=== PATIENT | female | born 1960 | race Caucasian/White ===

== ENCOUNTER 2023-11-09 15:02 | Outpatient (CLI) | payer MEDICARE | END 2023-11-09 15:03 | disposition home or self-care (01) | LOC: DI 15:02 | PROVIDERS: ATTEND Internal Medicine Cardiovascular Disease | DX: R94.31 Abnormal electrocardiogram [ECG] [EKG] (principal); I51.7 Cardiomegaly; R00.1 Bradycardia, unspecified | CPT/HCPCS: 93307 ==

== ENCOUNTER 2024-03-21 12:51 | Emergency (ER) | payer MEDICARE ==
--- NOTE | 2024-03-21 13:16 | ED Physician Documentation ---
PD HPI Fall - Stated complaint Stated Complaint: GLF/RT ARM INJ - Chief complaint Chief Complaint: Laceration - History obtained from History obtained from: Patient - History of Present Illness Mechanism of injury: Lost balance (riding horse and it turned quickly toward fencing/gate. Pt thrown off to the side and struck into fencing. Sharp edge/? nail caught forearm skin with large tear. Injury to right chest/ribs area. Noinjury to head/neck/spine nor abd. Amblatory after without pain in hips/legs to liit walking.) Fall distance: 5 to 10ft (from mounted on a horse.) Where injury occurred: Home Timing - onset: How many hours ago (1), Today Injury(ies) location: Chest, Right Upper Extremity. No: Head, Neck, Abdomen, Back Pain level max: 8 Pain level now: 4 Associated symptoms: No: LOC, AMS, Weakness, Paresthesias Review of Systems Neurologic: denies: Focal weakness, Numbness, Altered mental status, Headache, Head injury PD PAST MEDICAL HISTORY - Past Medical History Cardiovascular: None Respiratory: None Neuro: None Endocrine/Autoimmune: None GI: Colon polyps : None HEENT: None Psych: None Musculoskeletal: None Derm: None - Past Surgical History General: Colonoscopy /[employer]: Endometrial ablation - Present Medications Home Medications: Ambulatory Orders Medication Instructions Recorded Confirmed HYDROcod/ACETAM 5/325 [[facility] 5/325] 1 ea PO Q6H PRN #18 tablet 03/21/24 Meloxicam [Mobic] 7.5 mg PO BID 10 Days #20 tablet 03/21/24 - Allergies Allergies/Adverse Reactions: Allergies Allergy/AdvReac Type Severity Reaction Status Date / Time Sulfa (Sulfonamide Allergy Rash Verified 03/21/24 13:13 Antibiotics) - Social History Smoking Status: Never smoker PD ED PE NORMAL - Vitals Vital signs reviewed: Yes - General General: Alert and oriented X 3, Well developed/nourished, Other (in pain with breathing due to right chestwall. Guarding ROM of right forearm due to large laceration. 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 ) - HEENT HEENT: Atraumatic - Neck Neck: Supple, no meningeal sign, No bony TTP - Cardiac Cardiac: RRR, No murmur - Respiratory Respiratory: No respiratory distress, Clear bilaterally, Other (tender right lateral to posterior chest wall without lac nor crepitance. Linear bruising vertically faintly noted. ) - Abdomen Abdomen: Normal bowel sounds, Soft, Other (tender lateral right abd/trunk and toward right flank. Some tender right iliac crest and lateral iliac spine. Pasive ROM with pain, and no pain with impaction at hip. ) - Back Back: No CVA TTP, No spinal TTP (soft tissue tender posterolateral back with redness/early bruising vertically c/w the edge of board on fence. ) - Derm Derm: Normal color, Warm and dry - Extremities Extremities: Other (large laceration 15.5 cm zig-zag shape dorsolateral forearm. Full thickness skin/adipose, exposing but not involving uscle sheath of brachioradialis. No FB. Minimal bleeding.) - Neuro Neuro: Alert and oriented X 3, No motor deficit, No sensory deficit Eye Opening: Spontaneous Motor: Obeys Commands Verbal: Oriented GCS Score: 15 Results - Vitals Vitals: Oxygen O2 Source Room air - Labs Labs: Laboratory Tests 03/21/24 03/21/24 13:36 13:36 WBC 7.1 RBC 4.26 Hgb 13.4 Hct 41.1 MCV 96.5 MCH 31.5 H MCHC 32.6 RDW 13.8 Plt Count 211 MPV 9.5 Neut # (Auto) 5.0 Lymph # (Auto) 1.3 L Andrews # (Auto) 0.6 Eos # (Auto) 0.1 Baso # (Auto) 0.0 Absolute Nucleated RBC 0.00 Nucleated RBC % 0.0 Sodium 138 Potassium 4.3 Chloride 104 Carbon Dioxide 30 Anion Gap 4.0 L BUN 15 Creatinine 0.8 Estimated GFR (MDRD) 72 L Glucose 111 H Calcium 9.7 Total Bilirubin 1.1 H AST 80 H ALT 53 Alkaline Phosphatase 53 Total Protein 6.6 Albumin 4.6 Globulin 2.0 L Albumin/Globulin Ratio 2.3 H Lipase 36 - Rads (name of study) right forearm Relevant Findings:: Prelim report reviewed, EMP independent interpretation of test (no fractures. Soft tissue defect noted. ) chest xray Relevant Findings:: Prelim report reviewed, EMP independent interpretation of test (normal lung markings and no noted fractures. ) hip xray Relevant Findings:: Prelim report reviewed, EMP independent interpretation of test (no fractures) chest/abd/pelvic CT Relevant Findings:: Prelim report reviewed (no rib fractures, no organ inury ), EMP independent interpretation of test Procedures - Laceration (location) right forearm Length in cm: 15.5 Wound type: Curved, Irregular, Into subcut fat, Clean Neurovascular status: Sensory intact, Motor intact, Vascular intact Tendon involvement: Tendon intact Anesthesia: Lidocaine 1% with epi Wound preparation: debridement of wound edges (traumatic laceration/avulsion) Deep layer closure: Vicryl, size #-0 - enter number (5), # sutures - enter number (10) Skin layer closure: Nylon, Running, Size #-0 - enter number (4), Sutures - enter # (29) Other: Patient tolerated well, No complications, Neurovascular intact, Dressing applied, Tetanus UTD PD Medical Decision Making - ED course Complexity details: reviewed results (no fractures or organ injuries on imaging. Large forearm lac repaired. She was given some IV pain meds and Toradol to help with symptoms after initial eval. This helped her quite well, per pt. ), considered differential (forceful injury falling from trotting horse into fencing, with point impact to side of trunk. Some bruising/redness in a line that area. ), d/w patient Departure - Departure Disposition: 01 Home, Self Care Clinical Impression: Fall from horse, Forearm laceration, Chest wall contusion, Forearm contusion Condition: Stable Record reviewed to determine appropriate education?: Yes Instructions: ED Contusion Chest Wall, ED Laceration All Prescriptions: Meloxicam [Mobic] 7.5 mg PO BID 10 Days #20 tablet HYDROcod/ACETAM 5/325 [[facility] 5/325] 1 ea PO Q6H PRN #18 tablet PRN Reason: Pain Comments: Your CT scan does not show any rib fractures or organ injury. X-rays of your arm and hip also do not show any broken bones. Brody you. You will be sore however from the bruising and injury to the areas. This is likely to be for at least several days to week or so. Some anti-inflammatories will be helpful and adding in Tylenol every 4-6 hours. You will likely be more sore than that in the short-term so I also prescribed hydrocodone pain medicine to use if needed. It is okay to wash and shower. Clean off the wound twice a day with soap and mino er, or peroxide and water. Apply some antibiotic ointment to it to keep it moist. Also to watch for signs of infection such as purulence, redness or increasing pain. Return to your primary care or the ER at the specified time for suture removal. Suture removal 12 to 14 days on the forearm. Activity as tolerated with the forearm. I already transmitted prescriptions to [facility] in [place]. Hopefully they will be ready by the time you get there. Forms: PCP List Discharge Date/Time: 03/21/24 16:47
[2024-03-21 13:19] VITALS: BP 149/81; O2SAT 97
[2024-03-21 13:40] LABS: BASOPHILS % (AUTO) 0.4 %; EOSINOPHILS # (AUTO) 0.1 10^3/uL (0.0-0.7); EOSINOPHILS % (AUTO) 0.7 %; HCT - HEMATOCRIT 41.1 % (37.0-47.0); HGB - HEMOGLOBIN 13.4 g/dL (12.0-16.0); LYMPHOCYTES # (AUTO) 1.3 10^3/uL (1.5-3.5); LYMPHOCYTES % (AUTO) 18.6 %; MEAN CORPUSCULAR HEMOGLOBIN 31.5 pg (27.0-31.0); MEAN CORPUSCULAR HGB CONC 32.6 g/dL (32.0-36.0); MEAN CORPUSCULAR VOLUME 96.5 fL (81.0-99.0); MEAN PLATELET VOLUME 9.5 fL (7.9-10.8); MONOCYTES # (AUTO) 0.6 10^3/uL (0.0-1.0); MONOCYTES % (AUTO) 8.9 %; NEUTROPHILS % (AUTO) 70.8 %; PLT - PLATELET COUNT 211 10^3/uL (130-450); RED BLOOD COUNT 4.26 10^6/uL (4.20-5.40); RED CELL DISTRIBUTION WIDTH 13.8 % (12.0-15.0); WHITE BLOOD COUNT 7.1 x10^3/uL (4.8-10.8)
[2024-03-21] MEDS: KETOROLAC 15 MG/ML VIAL IVP STA (13:49)
[2024-03-21] MEDS: HYDROmorphone 1 MG/ML CARPUJECT IVP STA (13:50)
[2024-03-21 13:58] LABS: ALBUMIN 4.6 g/dL (3.2-5.5); ALBUMIN/GLOBULIN RATIO 2.3 (1.0-2.2); BILIRUBIN,TOTAL 1.1 mg/dL (0.2-1.0); CALCIUM 9.7 mg/dL (8.5-10.3); CREATININE 0.8 mg/dL (0.6-1.3); POTASSIUM 4.3 mmol/L (3.5-4.5); TOTAL PROTEIN 6.6 g/dL (6.4-8.9)
--- NOTE | 2024-03-21 14:00 | XRAY Report ---
PROCEDURE: Chest 1V INDICATIONS: fall horse; right ribs pain TECHNIQUE: One view of the chest was acquired. COMPARISON: None. FINDINGS: Surgical changes and devices: None. Lungs and pleura: No pleural effusions or pneumothorax. Lungs are clear. Mediastinum: Mediastinal contours appear normal. Heart size is normal. Bones and chest wall: No suspicious bony lesions. No displaced right rib fracture identified. [place] ing soft tissues appear unremarkable. IMPRESSION: No acute cardiopulmonary process. Reviewed by: Wilder Green MD on 03/21/2024 1:59 PM PDT Approved by: Wilder Green MD on 03/21/2024 1:59 PM PDT Station ID: [id number]
--- NOTE | 2024-03-21 14:01 | XRAY Report ---
PROCEDURE: Forearm RT INDICATIONS: fall from horse, right arm pain TECHNIQUE: 2 views of the forearm were acquired. COMPARISON: None. FINDINGS: Bones: No fractures or dislocations. No suspicious bony lesions. Soft tissues: Extensive soft tissue calcifications at the wrist and proximal hand, of uncertain etiol ogy IMPRESSION: 1. No acute fracture or dislocation involving the forearm. 2. Extensive soft tissue calcifications incidentally noted at the level of the wrist and proximal diop d. Reviewed by: Wilder Green MD on 03/21/2024 2:00 PM PDT Approved by: Wilder Green MD on 03/21/2024 2:00 PM PDT Station ID: [id number]
--- NOTE | 2024-03-21 14:01 | XRAY Report ---
PROCEDURE: Pelvis 1-2V INDICATIONS: fall horse, hip right pain TECHNIQUE: 1 view(s) of the pelvis acquired. COMPARISON: None. FINDINGS: Bones: No fractures or dislocations. No suspicious bony lesions. Soft tissues: Visualized bowel gas pattern is normal. No suspicious soft tissue calcifications. IMPRESSION: No acute bony abnormality. Reviewed by: Wilder Green MD on 03/21/2024 2:00 PM PDT Approved by: Wilder Green MD on 03/21/2024 2:00 PM PDT Station ID: [id number]
[2024-03-21] MEDS ORDERED: iohexoL-300 100 ML VIAL ONE (14:30)
[2024-03-21] MEDS: iohexoL-300 100 ML VIAL IVP ONE (15:15)
--- NOTE | 2024-03-21 15:31 | CT Report ---
PROCEDURE: Chest W INDICATIONS: fall horse; right trunk/ribs pain CONTRAST: 100ML [id number] TECHNIQUE: After the administration of intravenous contrast, a CT scan of the chest was performed. Images were recorded and evaluated at appropriate window settings. Reformats: axial MIP of the chest, coronal and sagittal. For radiation dose reduction, the following was used: automated exposure control, adjustme nt of mA and/or kV according to patient size. COMPARISON: CT abdomen and pelvis from the same date FINDINGS: Image quality: Diagnostic. Chest wall and lower neck: No thyroid nodule which requires sonographic follow up. No breast mass. No axillary or supraclavicular adenopathy by size. Lungs and pleura: No consolidation. No pleural effusions. No pneumothorax. 3 mm fissural nodule, rig ht lung, image 72/4, likely a benign fissural pulmonary lymph node. Mediastinum: Heart size is normal. No pericardial effusion. No large vessel abnormality. No mediastin al adenopathy by size criteria. Bones: No aggressive osseous abnormality. No displaced rib fracture. No vertebral body fracture. No s ternal fracture.. Upper Abdomen: Unremarkable. IMPRESSION: 1. No acute process in the chest in the setting of acute trauma. No pneumothorax. No displaced rib fr acture. No other fracture identified. Reviewed by: Wilder Green MD on 03/21/2024 3:30 PM PDT Approved by: Wilder Green MD on 03/21/2024 3:30 PM PDT Station ID: [id number]
--- NOTE | 2024-03-21 15:35 | CT Report ---
PROCEDURE: Abdomen/Pelvis W INDICATIONS: fall horse/ right trunk pain CONTRAST: 100ML [id number] TECHNIQUE: After the administration of intravenous contrast, a CT scan of the abdomen and pelvis was performed. Images were recorded and evaluated at appropriate window settings. Reformats: coronal and sagittal. F or radiation dose reduction, the following was used: automated exposure control, adjustment of mA and /or kV according to patient size. COMPARISON: CT chest from the same date FINDINGS: Image quality: Diagnostic. Lower chest: Unremarkable. Liver: No solid mass. Gallbladder: No radiopaque stones or wall thickening. Biliary tree: No intrahepatic or extrahepatic dilation, accounting for age. Spleen: No splenomegaly. Pancreas: No pancreatic ductal dilation. Adrenals: No adrenal nodule. Kidneys and ureters: No hydronephrosis. No renal cystic lesion which requires follow up. No solid mas s. Stomach, bowel and peritoneum: No gastric or small bowel dilation. No abnormal wall thickening. No pa thologic fluid. Moderate sigmoid diverticulosis without evidence of diverticulitis. Lymph nodes: No central or retroperitoneal adenopathy. Vessels: No infrarenal aortic aneurysm. Patent portal vein. PELVIS Reproductive organs: Incidental note is made of the presence of an exophytic fibroid off of the anter ior fundus of the uterus. No adnexal masses. Bladder: No abnormal wall thickening, accounting for underdistention. Pelvic lymph nodes: No pelvic adenopathy by size criteria. Bones: No aggressive osseous abnormality. No vertebral body fracture or other fracture noted. Lumbar degenerative change.. Other: No significant ventral or inguinal hernia. IMPRESSION: 1. No significant sequelae of acute trauma noted in the abdomen and pelvis. 2. Moderate sigmoid diverticulosis without evidence of acute diverticulitis. 3. Incidental note made of uterine fibroid. Reviewed by: Wilder Green MD on 03/21/2024 3:33 PM PDT Approved by: Wilder Green MD on 03/21/2024 3:33 PM PDT Station ID: [id number]
[2024-03-21] MEDS: BACITRACIN ZINC OINT 1 PACKET TOP STA (16:37)
[2024-03-21] MEDS: LIDOCAINE 1%-EPI 1:100000 20 ML MDV SUBQ STA (16:37)
== END 2024-03-21 16:47 | disposition home or self-care (01) ==
LOC: ED 12:51
DX: S51.811A Laceration without foreign body of right forearm, initial encounter (principal); S50.11XA Contusion of right forearm, initial encounter; S20.219A Contusion of unspecified front wall of thorax, initial encounter; V80.010A Animal-rider injured by fall from or being thrown from horse in noncollision accident, initial encounter; Y93.52 Activity, horseback riding; Y92.009 Unspecified place in unspecified non-institutional (private) residence as the place of occurrence of the external cause
CPT/HCPCS: 12005; 36415; 71045; 71260; 72170; 73090; 74177; 80053; 83690; 85025; 96374; 96375; 99284; A9270; J1170; Q9967